=== PATIENT | male | born 1955 | race Caucasian/White ===

== ENCOUNTER 2018-06-22 12:55 | Emergency (ER) | payer OTHER ==
[~2018-06-22] VITALS: Ht 172.7 cm; Wt 108.0 kg
[2018-06-22 13:01] VITALS: Ht 172.7 cm; Wt 108.0 kg
[2018-06-22] MEDS ORDERED: LIDOCAINE 1%/EPI 30 ML INJ INJ STA (13:09)
[2018-06-22] MEDS ORDERED: DIPHTH/TET/ACEL PERTUSS (ADULT) 0.5 ML VIAL ZFS ONE (13:30)
[2018-06-22] MEDS ORDERED: ACETAMINOPHEN 325 MG TAB PO ONE (13:30)
[2018-06-22] MEDS ORDERED: LIDOCAINE 1%/EPI (1:100,000) (MDV) 20 ML INJ SCH (13:38)
[2018-06-22] MEDS ORDERED: CEPH-443 PO (14:04)
[2018-06-22] MEDS ORDERED: ACET1TAB40 PO (14:04)
[2018-06-22] MEDS ORDERED: BACITRACIN 0.9 GM OINT ONE (14:04)
--- NOTE | 2018-06-22 14:10 | ERD ---
ER Documentation Chief Complaint Chief Complaint FALL WITH LEFT FOREHEAD 3" LAC, BLEED CONTROLLED HPI 62-year-old male fell off a step ladder and hit his forehead on the rim of the tire today. There is no history of loss of conscious, vomiting, visual changes. Tetanus not up-to-date. He denies neck pain, deficits or weakness. ROS All systems reviewed and are negative except as per history of present illness. Medications Home Meds Active Scripts Cephalexin* (Keflex*) 500 Mg Capsule, 500 MG PO QID for 7 Days, CAP Prov:CHEYANNE MUIR MD 06/22/18 Acetaminophen with Codeine (Acetaminophen-Cod #3 Tablet) 1 Each Tablet, 1 TAB PO Q6H PRN for PAIN, #10 TAB Prov:CHEYANNE MUIR MD 06/22/18 Allergies Allergies: Coded Allergies: No Known Allergy (Unverified , 06/22/18) PMhx/Soc Medical and Surgical Hx: pt denies Medical Hx, pt denies Surgical Hx FmHx Family History: No diabetes, No coronary disease, No other Physical Exam Vitals Vital Signs Date Temp Pulse Resp B/P (MAP) Pulse Ox O2 O2 Flow FiO2 Time Delivery Rate 06/22/18 98.4 70 18 180/96 96 13:01 (124) Physical Exam Const: No acute distress Head: Atraumatic proximally 6 cm laceration which is T-shaped above the left eyebrow which transverses through the eyebrow. Eyes: Normal Conjunctiva . eyes Dmitriy and extraocular movements intact. No bony tenderness or deformities. ENT: Normal External Ears, Nose and Mouth. Neck: Full range of motion. No meningismus. Resp: Clear to auscultation bilaterally Cardio: Regular rate and rhythm, no murmurs Abd: Soft, non tender, non distended. Normal bowel sounds Skin: No petechiae or rashes Back: No midline or flank tenderness Ext: No cyanosis, or edema Neur: Awake and alert Psych: Normal Mood and Affect Results 24 hrs Current Medications Medications Dose Sig/Kaveh Start Time Status Last (Trade) Ordered Route PRN Stop Time Admin Dose Reason Admin Diphtheria/ 0.5 ml ONCE ONCE 06/22/18 DC 06/22/18 Tetanus/Acell ZFS 13:30 13:31 Pertussis 06/22/18 13:31 (Adacel) Lidocaine/ 30 ml ONCE STAT 1/15/19 Cancel Epinephrine INJ 13:09 (Xylocaine 06/22/18 13:10 1%/ Epi (Pf)) 650 mg ONCE ONCE 06/22/18 DC 06/22/18 Acetaminophen PO 13:30 13:30 (Tylenol 06/22/18 13:31 Tab) Lidocaine/ 20 ml NOW INJ 06/22/18 DC Epinephrine 13:38 (Xylocaine 06/22/18 13:39 1%/ Epi (Mdv) 20 ml) Bacitracin 1 applic STK-MED 06/22/18 DC (Bacitracin ONCE .ROUTE 14:04 Oint (Ud)) 06/22/18 14:05 Procedures/MDM Patient presents with a left eyebrow laceration no signs or symptoms of int racranial bleeding, fracture, neck injury, deficits. Patient is well-appearing and talkative. Seizure note-left eyebrow laceration was irrigated copiously with normal saline. 8 cc of lidocaine was used for local filtration. 14 5-0 nylon sutures were us ed to reapproximate the T-shaped laceration. Patient tolerated procedure well and wound was dressed. Patient has no evidence of cranial nerve deficits. Particularly superior aspect of cranial nerve VII in the area of laceration post procedure. Patient will be discharged home with prescription of Tylenol 3, Keflex given the depth and a large size of the laceration and recommendations for 2-day wound check in 7 days suture removal. He should return sooner for new or worsening symptoms of head injury or laceration as directed and aftercare instructions. Departure Diagnosis: Primary Impression: Head injury Encounter type: initial encounter Qualified Codes: S09.90XA - Unspecified injury of head, initial encounter Additional Impression: Laceration Condition: Stable Patient Instructions: HEAD INJURY, No Wake-Up (Adult), Laceration, All Referrals: EMERGENCY,DOCTOR GROUP (PCP) Additional Instructions: Cheque 2 kelley para cheque para infeccion. cheque 7 kelley para saca los puntos / grapas. CHEYANNE MUIR MD Jun 22, 2018 14:09
[2018-06-22 14:22] VITALS: BP 178/90; PULSE 60; RESP 20
== END 2018-06-22 14:51 | disposition home or self-care (01) ==
LOC: FTE 12:55
DX: S01.81XA Laceration without foreign body of other part of head, initial encounter (principal); W01.198A Fall on same level from slipping, tripping and stumbling with subsequent striking against other object, initial encounter; Y92.9 Unspecified place or not applicable; Z23 Encounter for immunization
CPT/HCPCS: 12014; 90715; Z7610; 90471

== ENCOUNTER 2018-06-25 17:02 | Emergency (ER) | payer OTHER ==
[~2018-06-25] VITALS: Ht 172.7 cm; Wt 108.6 kg
[~2018-06-25 17:02] MED LIST: ACET1TAB40 PO; CEPH-443 PO
[2018-06-25 17:03] VITALS: BP 178/107; PULSE 70; RESP 19; Ht 172.7 cm; Wt 108.6 kg
--- NOTE | 2018-06-25 19:13 | ERD ---
ER Documentation Chief Complaint Chief Complaint WOUND CHECK TO LEFT EYEBROW SUTURES HPI 62-year-old male patient with a past medical history of hyperlipidemia, hypertension presents to the ED for a facial injury that occurred 2 days ago. Patient had 14 sutures placed of the left eyebrow. Patient denies any loss of consciousness. Denies any fever, chills, headache, eye pain, nausea, vomiting, diarrhea, neck stiffness. Patient reports that he accidentally fell forward on a ladder. Denies taking any blood thinners. ROS All systems reviewed and are negative except as per history of present illness. Medications Home Meds Active Scripts Cephalexin* (Keflex*) 500 Mg Capsule, 500 MG PO QID for 7 Days, CAP Prov:CHEYANNE MUIR MD 06/22/18 Acetaminophen with Codeine (Acetaminophen-Cod #3 Tablet) 1 Each Tablet, 1 TAB PO Q6H PRN for PAIN, #10 TAB Prov:CHEYANNE MUIR MD 06/22/18 Allergies Allergies: Coded Allergies: No Known Allergy (Unverified , 06/22/18) PMhx/Soc Medical and Surgical Hx: pt denies Medical Hx, pt denies Surgical Hx FmHx Family History: No diabetes, No coronary disease Physical Exam Vitals Vital Signs Date Temp Pulse Resp B/P (MAP) Pulse Ox O2 O2 Flow FiO2 Time Delivery Rate 06/25/18 97.8 70 19 178/107 97 17:03 (130) Physical Exam Const: Vwa-dxz-[id number], well-nourished. In no acute distress. Head: Atraumatic, normocephalic. 8 cm horizontal laceration with 14 sutures noted. T-shaped. No edema. No erythema. Eyes: Normal Conjunctiva without injection. No purulent discharge. PERRLA. EOMI ENT: Normal external ear. Ear canal without erythema. Tympanic membrane pearly rosas without effusion or bulging. Nasal canal clear with normal turbinates. Moist oropharynx without tonsillar exudates. Non-erythematous pharynx. Uvula midline. No drooling. No trismus. Neck: No cervical midline tenderness. Full range of motion. No meningismus. No cervical lymphadenopathy. No JVD. Resp: Clear to auscultation bilaterally. No wheezing, rhonchi, rales, or crackles. No accessory muscle use. No retractions. Cardio: Regular rate and rhythm. No murmurs, rubs or gallops. Abd: Soft, non tender, non distended. Normal bowel sounds. No palpable masses. No rebound tenderness. No guarding. Negative McBurney's Point. Negative Ibrahim's Sign. Skin: Normal skin turgor. No petechiae or rashes Back: No midline tenderness. No CVA tenderness. Ext: No cyanosis, or edema. Distal pulses intact bilaterally. Neur: Awake and alert. Normal gait. Normal coordination. Cranial Nerves II- VII intact. Normal finger to nose. Muscle strength 5/5. Sensation intact. Psych: Normal Mood and Affect Procedures/MDM 62-year-old male patient with a past medical history of hyperlipidemia, hypertension presents to ED complaining of a facial injury, 2 days ago and is here to check up on his sutures. Patient is afebrile and nontoxic-appearing. Blood Pressure Assessment: Patient's blood pressure was elevated (>120/80) but appears stable without evidence of hypertension emergency or urgency. The patient was counseled about the risks of hypertension and urged to pursue outpatient monitoring and therapy within a week with their primary care physician. 14 sutures noted on the horizontal laceration, well-healing. No fluctuance, in duration, erythema. Low suspicion for deep space infection, abscess, intracranial bleed, subarachnoid, meningitis, TIA, stroke, subdural hematoma, epidural hematoma, or other emergent conditions. Diagnosis: Suture Check Discharge medications: Continue Keflex, Tylenol Follow up with primary care physician in 1-2 days. Instructed patient to return to the ED sooner for any worsening symptoms. Patient's questions were answered. Patient is hemodynamically stable. Patient understood and agreed with discharge plan. Patient discharged stable. Disclaimer: Inadvertent spelling and grammatical errors are likely due to EHR/dictation software use and do not reflect on the overall quality of patient care. Also, please note that the electronic time recorded on this note does not necessarily reflect the actual time of the patient encounter. Departure Diagnosis: Primary Impression: Suture check Condition: Stable Patient Instructions: Suture Care, HEAD INJURY with Wake-Up (Adult) Referrals: [facility] ([facility]) [facility] YOU HAVE RECEIVED A MEDICAL SCREENING EXAM AND THE RESULTS INDICATE THAT YOU DO NOT HAVE A CONDITION THAT REQUIRES URGENT TREATMENT IN THE EMERGENCY DEPARTMENT. FURTHER EVALUATION AND TREATMENT OF YOUR CONDITION CAN WAIT UNTIL YOU ARE SEEN IN YOUR DOCTORS OFFICE WITHIN THE NEXT 1-2 DAYS. IT IS YOUR RESPONSIBILITY TO MAKE AN APPOINTMENT FOR FOLOW-UP CARE. IF YOU HAVE A PRIMARY DOCTOR --you should call your primary doctor and schedule an appointment IF YOU DO NOT HAVE A PRIMARY DOCTOR YOU CAN CALL OUR PHYSICIAN REFERRAL HOTLINE AT IF YOU CAN NOT AFFORD TO SEE A PHYSICIAN YOU CAN CHOSE FROM THE FOLLOWING [facility] [address] [facility] [address] [facility] [address] [facility] [address] [facility] [address] [facility]. [facility] [address] [facility]. [facility] YOU HAVE RECEIVED A MEDICAL SCREENING EXAM AND THE RESULTS INDICATE THAT YOU DO NOT HAVE A CONDITION THAT REQUIRES URGENT TREATMENT IN THE EMERGENCY DEPARTMENT. FURTHER EVALUATION AND TREATMENT OF YOUR CONDITION CAN WAIT UNTIL YOU ARE SEEN IN YOUR DOCTORS OFFICE WITHIN THE NEXT 1-2 DAYS. IT IS YOUR RESPONSIBILITY TO MAKE AN APPOINTMENT FOR FOLOW-UP CARE. IF YOU HAVE A PRIMARY DOCTOR --you should call your primary doctor and schedule and appointment IF YOU DO NOT HAVE A PRIMARY DOCTOR YOU CAN CALL OUR PHYSICIAN REFERRAL HOTLINE AT . IF YOU CAN NOT AFFORD TO SEE A PHYSICIAN YOU CAN CHOSE FROM THE FOLLOWING [facility] INSTITUTIONS: [facility] [address] [place] [address] [facility] [address] [place] [address] [facility] [address] [place] [address] [facility] URGENT CARE/SPECIALTIES Additional Instructions: Continue taking all of the antibiotics. Return in 5 days for suture removal. See the doctor sooner or return here if your condition worsens before your appointment time - headache, fever, eye pain, vomiting, etc. ELIANE MONROE PA-C Jun 25, 2018 19:13
== END 2018-06-25 18:01 | disposition home or self-care (01) ==
LOC: FTE 17:02
DX: Z48.01 Encounter for change or removal of surgical wound dressing (principal); I10 Essential (primary) hypertension
CPT/HCPCS: 99283

== ENCOUNTER 2018-07-01 12:47 | Emergency (ER) | payer OTHER ==
[~2018-07-01] VITALS: Wt 105.6 kg
[2018-07-01 12:58] VITALS: BP 145/89; PULSE 58; RESP 20
--- NOTE | 2018-07-01 15:40 | ERD ---
ER Documentation Chief Complaint Chief Complaint for removal of stitches above L brow: placed 10d ago. HPI 62 yr old male presenting for suture removal of the left upper eyebrow. Sutures were placed 10 days ago. He denies any visual changes and denies headache. No vomiting. Denies other medical problems. NKDA. Surgical history denies. Social history denies ROS All systems reviewed and are negative except as per history of present illness. Medications Home Meds Active Scripts Cephalexin* (Keflex*) 500 Mg Capsule, 500 MG PO QID for 7 Days, CAP Prov:CHEYANNE MUIR MD 06/22/18 Acetaminophen with Codeine (Acetaminophen-Cod #3 Tablet) 1 Each Tablet, 1 TAB PO Q6H PRN for PAIN, #10 TAB Prov:CHEYANNE MUIR MD 06/22/18 Allergies Allergies: Coded Allergies: No Known Allergy (Unverified , 07/01/18) PMhx/Soc Medical and Surgical Hx: pt denies Medical Hx, pt denies Surgical Hx Hx Alcohol Use: No Hx Substance Use: No Hx Tobacco Use: No Smoking Status: Never smoker FmHx Family History: No diabetes, No coronary disease, No other Physical Exam Vitals Vital Signs Date Temp Pulse Resp B/P (MAP) Pulse Ox O2 O2 Flow FiO2 Time Delivery Rate 07/01/18 98.7 58 20 145/89 95 12:58 (107) Physical Exam GENERAL: The patient is well-appearing, well-nourished, in no acute distress HEENT: Atraumatic. Conjunctivae are pink. Pupils equal, round, and reactive to light. There is no scleral icterus. Tympanic membranes clear bilaterally. Oropharynx clear. CHEST: Clear to auscultation bilaterally. There are no rales, wheezes or rhonchi. HEART: Regular rate and rhythm. No murmurs, clicks, rubs or gallops. No S3 or S4. NEUROLOGIC: Alert and oriented. Cranial nerves II through XII intact. Motor strength in all 4 extremities with 5 out of 5 strength. Sensation grossly intact. Normal speech and gait. Babinski negative. DTR 2+ throughout. SKIN: Healing laceration noted over the left eyebrow. Wound is approximately 3 cm in a crescent shape. No active bleeding surrounding erythema or dehiscence. Procedures/MDM ER course: Half the stitches were removed. Patient tolerated procedure well. I refrain from removing other stitches as I feel injury would benefit from a few more days of drying out. Patient is told to return in 2 days to continue having sutures removed. Patient was told to clean normally with soap and water and let air dry. MDM: 8-year-old male presenting for suture removal. I removed half the stitches but feel that the wound would benefit from a few more days. Patient is rec ommended to return within 2-3 days to have rest of stitches removed. Patient is discharged stricter precautions. I have low suspicion for intracranial hemorrhage or neuro deficit. All questions answered at discharge Departure Diagnosis: Primary Impression: Visit for suture removal Condition: Stable Patient Instructions: Suture Removal, No Complication Additional Instructions: FOLLOW UP WITH YOUR PRIMARY CARE PHYSICIAN TOMORROW.Return to this facility if you are not improving as expected. AZIZA JOSHI PA-C Jul 01, 2018 15:40
== END 2018-07-01 14:52 | disposition home or self-care (01) ==
LOC: FTE 12:47
DX: Z48.02 Encounter for removal of sutures (principal)
CPT/HCPCS: 99281

== ENCOUNTER 2018-07-08 12:33 | Emergency (ER) | payer OTHER ==
[~2018-07-08] VITALS: Ht 172.7 cm; Wt 106.7 kg
[2018-07-08 12:34] VITALS: BP 153/84; PULSE 63; RESP 18; Ht 172.7 cm; Wt 106.7 kg
[2018-07-08] MEDS ORDERED: BACITUD TOP (14:00)
--- NOTE | 2018-07-08 15:16 | ERD ---
ER Documentation Chief Complaint Chief Complaint SUTURE REMOVAL HPI 62-year-old male patient presents to the ED for a suture removal of the left side of his face. Patient sustained a laceration due to head injury without any loss of consciousness on June 22, 2018. Denies any headache, dizziness, chest pain, shortness of breath, nausea, vomiting, diarrhea, abdominal pain. ROS All systems reviewed and are negative except as per history of present illness. Medications Home Meds Active Scripts Bacitracin* (Bacitracin Oint (UD)*) 1 Applic Oint, 1 APPLIC TOP ONCE, #7 PKT APPLY TO Prov:ELIANE MONROE PA-C 07/08/18 Cephalexin* (Keflex*) 500 Mg Capsule, 500 MG PO QID for 7 Days, CAP Prov:CHEYANNE MUIR MD 06/22/18 Acetaminophen with Codeine (Acetaminophen-Cod #3 Tablet) 1 Each Tablet, 1 TAB PO Q6H PRN for PAIN, #10 TAB Prov:CHEYANNE MUIR MD 06/22/18 Allergies Allergies: Coded Allergies: No Known Allergy (Unverified , 07/01/18) PMhx/Soc Medical and Surgical Hx: pt denies Medical Hx, pt denies Surgical Hx Hx Alcohol Use: No Hx Substance Use: No Hx Tobacco Use: No FmHx Family History: No diabetes, No coronary disease Physical Exam Vitals Vital Signs Date Temp Pulse Resp B/P (MAP) Pulse Ox O2 O2 Flow FiO2 Time Delivery Rate 07/08/18 99.2 63 18 153/84 96 12:34 (107) Physical Exam Const: Veb-hta-[id number], well-nourished. In no acute distress. Head: Atraumatic, normocephalic. No hematoma. No diaz sign. Y shaped lateral laceration with 8 sutures noted also noted to have some sutures removed. No dehiscence. No erythema, edema, purulent discharge noted. Eyes: Normal Conjunctiva without injection. No purulent discharge. PERRLA. EOMI ENT: Normal external ear. Ear canal without erythema. Tympanic membrane pearly rosas without effusion or bulging. Nasal canal clear with normal turbinates. Moist oropharynx without tonsillar exudates. Non-erythematous pharynx. Uvula midline. No drooling. No trismus. Neck: No cervical midline tenderness. Full range of motion. No meningismus. No cervical lymphadenopathy. No JVD. Resp: Clear to auscultation bilaterally. No wheezing, rhonchi, rales, or crackles. No accessory muscle use. No retractions. Cardio: Regular rate and rhythm. No murmurs, rubs or gallops. Abd: Soft, non tender, non distended. Normal bowel sounds. No palpable masses. No rebound tenderness. No guarding. Negative McBurney's Point. Negative Ibrahim's Sign. Skin: Normal skin turgor. No petechiae or rashes Back: No midline tenderness. No CVA tenderness. Ext: No cyanosis, or edema. Distal pulses intact bilaterally. Neur: Awake and alert. Normal gait. Normal coordination. Cranial Nerves II- VII intact. Normal finger to nose. Muscle strength 5/5. Sensation intact. Psych: Normal Mood and Affect Procedures/MDM 62 year-old male patient with no significant past medical history presents to ED complaining of a suture removal. Patient is afebrile and nontoxic-appearing. 8 sutures removed without any difficulty. Patient tolerated procedure. No dehiscence. Patient's laceration is healing well and appropriately. No erythema, edema, purulent discharge. No flexions or induration. Low suspicion for cellulitis, deep space infection. Low suspicion for intracranial bleed, subarachnoid hemorrhage, meningitis, TIA, stroke, subdural hematoma, epidural hematoma, carotid dissection, skull fracture or other emergent conditions. Diagnosis: Visit for suture removal Discharge medications: Bacitracin Follow up with primary care physician in 1-2 days. Instructed patient to return to the ED sooner for any worsening symptoms. Patient's questions were answered. Patient is hemodynamically stable. Patient understood and agreed with discharge plan. Patient discharged stable. Disclaimer: Inadvertent spelling and grammatical errors are likely due to [employer]ant[employer]/dictation software use and do not reflect on the overall quality of patient care. Also, please note that the electronic time recorded on this note does not necessarily reflect the actual time of the patient encounter. Departure Diagnosis: Primary Impression: Visit for suture removal Condition: Stable Patient Instructions: Suture Removal, No Complication Referrals: COMMUNITY CLINICS YOU HAVE RECEIVED A MEDICAL SCREENING EXAM AND THE RESULTS INDICATE THAT YOU DO NOT HAVE A CONDITION THAT REQUIRES URGENT TREATMENT IN THE EMERGENCY DEPARTMENT. FURTHER EVALUATION AND TREATMENT OF YOUR CONDITION CAN WAIT UNTIL YOU ARE SEEN IN YOUR DOCTORS OFFICE WITHIN THE NEXT 1-2 DAYS. IT IS YOUR RESPONSIBILITY TO MAKE AN APPOINTMENT FOR FOLOW-UP CARE. IF YOU HAVE A PRIMARY DOCTOR --you should call your primary doctor and schedule an appointment IF YOU DO NOT HAVE A PRIMARY DOCTOR YOU CAN CALL OUR PHYSICIAN REFERRAL HOTLINE AT IF YOU CAN NOT AFFORD TO SEE A PHYSICIAN YOU CAN CHOSE FROM THE FOLLOWING [facility] [address] [facility] [address] [facility]. [facility] [address] [facility] [address] [facility] [address] [facility]. [facility] [address] [facility]. [facility] YOU HAVE RECEIVED A MEDICAL SCREENING EXAM AND THE RESULTS INDICATE THAT YOU DO NOT HAVE A CONDITION THAT REQUIRES URGENT TREATMENT IN THE EMERGENCY DEPARTMENT. FURTHER EVALUATION AND TREATMENT OF YOUR CONDITION CAN WAIT UNTIL YOU ARE SEEN IN YOUR DOCTORS OFFICE WITHIN THE NEXT 1-2 DAYS. IT IS YOUR RESPONSIBILITY TO MAKE AN APPOINTMENT FOR FOLOW-UP CARE. IF YOU HAVE A PRIMARY DOCTOR --you should call your primary doctor and schedule and appointment IF YOU DO NOT HAVE A PRIMARY DOCTOR YOU CAN CALL OUR PHYSICIAN REFERRAL HOTLINE AT . IF YOU CAN NOT AFFORD TO SEE A PHYSICIAN YOU CAN CHOSE FROM THE FOLLOWING [facility] INSTITUTIONS: [facility] [address] [place] [address] [facility] [address] [place] [address] [facility] [address] [place] [address] [facility] URGENT CARE/SPECIALTIES Additional Instructions: Llame al doctor MAANA y alcira karen ASHLEY PARA DENTRO DE 2-3 KELLER.Dgale a la secretaria que nosotros le instruimos hacer esta ashley.Avise o llame si fowler condicin se empeora antes de la ashley. Regresa aqui si peor o no mejor. ELIANE MONROE PA-C Jul 08, 2018 15:16
== END 2018-07-08 14:22 | disposition home or self-care (01) ==
LOC: FTE 12:33
DX: Z48.02 Encounter for removal of sutures (principal)
CPT/HCPCS: 99282